=== PATIENT | female | born 1970 | race African-American/Black ===

== ENCOUNTER 2018-04-22 12:39 | Emergency (ER) | payer SELFPAY ==
[2018-04-22] MEDS ORDERED: KETOROLAC 30 MG/ML INJ ONE (13:39)
--- NOTE | 2018-04-22 13:42 | RAD REPORT ---
EXAM DESCRIPTION: RAD - Chest Single View - 04/22/2018 1:32 pm CLINICAL HISTORY: CHEST PAIN Chest pain. COMPARISON: Chest Single View dated 03/13/2017 FINDINGS: Portable technique limits examination quality. The lungs are underinflated with motion degradation noted. No gross infiltrate seen. The heart is nor mal in size. No displaced fractures. IMPRESSION: Underinflated lungs.
[2018-04-22 13:54] LABS: Absolute Lymphocytes (CBC) 2.7 K/uL (0.7-4.9); Absolute Monocytes 0.6 K/uL (0.1-1.3); Absolute Neutrophil 3.1 K/uL (1.8-8.0); Basophils % 0.7 % (0-1.3); Eosinophils % 1.8 % (0-4.4); Hematocrit 42.4 % (36.0-45.0); Lymphocytes % 41.3 % (15.3-44.8); MCH 24.7 pg (27.0-35.0); MPV 9.4 fL (7.6-11.3); Monocytes % 8.5 % (3.3-12.3); RBC Red Blood Cell Count 5.51 M/uL (3.86-4.86)
[2018-04-22 14:03] LABS: Protime INR 1.08
[2018-04-22 14:06] LABS: ALT/SGPT 36 U/L (12-78); AST/SGOT 22 U/L (15-37); Albumin 3.4 g/dL (3.4-5.0); Alkaline Phosphatase 96 U/L (45-117); BUN Blood Urea Nitrogen 15 mg/dL (7-18); Bicarbonate 27 mmol/L (21-32); Bilirubin Direct < 0.1 mg/dL (0-0.2); Bilirubin Total 0.2 mg/dL (0.2-1.0); CKMB Creatine Kinase MB 3.6 ng/mL (0.3-3.6); Creatine Phosphokinase 390 U/L (26-192); Glucose Level 269 mg/dL (74-106); Magnesium 2.2 mg/dL (1.8-2.4); Potassium 3.4 mmol/L (3.5-5.1); Protein, Total 7.1 g/dL (6.4-8.2); Sodium Level 138 mmol/L (136-145)
[2018-04-22 14:07] LABS: NT PRO-BNP < 5 pg/mL (<125)
--- NOTE | 2018-04-22 14:48 | RAD REPORT ---
EXAM DESCRIPTION: CT - C Spine Wo Con - 04/22/2018 2:37 pm CLINICAL HISTORY: Pain;Numbness/tingling Radiculopathy COMPARISON: <Comparisons> FINDINGS: The cervical vertebral body heights and disc spaces are maintained. Mild anterior osteophy tosis is present along the inferior aspect of the cervical spine. No evidence of acute cervical spine fracture or subluxation. Prevertebral soft tissues are normal in thickness. IMPRESSION: Negative study. All CT scans are performed using dose optimization technique as appropriate and may include automated exposure control or mA/KV adjustment according to patient size.
[2018-04-22 14:53] LABS: Urine Blood TRACE (NEG); Urine Glucose 1+ (NEG); Urine Protein NEGATIVE (NEG); Urine pH 6.5 (5.0-7.0)
[2018-04-22] MEDS ORDERED: POTASSIUM 25 MEQ EFFERV TAB ONE (15:03)
[2018-04-22] MEDS ORDERED: NA CHLORIDE 0.9% 1,000 ML ONE (15:03)
--- NOTE | 2018-04-22 16:16 | EDPHYS ---
Physician Documentation [facility] Name: Shonna Franco Age: 47 yrs Sex: Female : 1970 Arrival Date: 04/22/2018 Time: 12:40 Bed 28 Private MD: None, None ED Physician Garcia Zimmer HPI: 04/22 14:21 This 47 yrs old Black Female presents to ER via Wheelchair with complaints of Chest snw Pain. 14:21 The patient or guardian reports chest pain that is located primarily in the anterior snw chest wall, left. Onset: suddenly, and became worse and became persistent. The pain radiates to the left arm. Associated signs and symptoms: Pertinent positives: None. The chest pain is described as sharp, stabbing. Duration: The patient or guardian reports multiple episodes, that wax and wane. Modifying factors: The symptoms are alleviated by nothing. the symptoms are aggravated by movement. Severity of pain: At its worst the pain was tingling to left fingers. The patient has not experienced similar symptoms in the past. HERB GROWER: 12:56 LMP N/A - Post-menopause ch Historical: - Allergies: 12:56 No Known Allergies; ch - Home Meds: 12:56 none now "dr said i was good" [Active]; ch - PMHx: 12:56 Diabetes - NIDDM; Hypertension; Kidney stones; ch - PSHx: 12:56 gall stone sx; ch - Immunization history:: Adult Immunizations up to date, Flu vaccine is not up to date. - Social history:: Smoking status: Patient/guardian denies using tobacco, Patient/guardian denies using alcohol, street drugs. - Ebola Screening: : Patient negative for fever greater than or equal to 101.5 degrees Fahrenheit, and additional compatible Ebola Virus Disease symptoms Patient denies exposure to infectious person Patient denies travel to an Ebola-affected area in the 21 days before illness onset No symptoms or risks identified at this time. ROS: 15:14 Constitutional: Negative for fever, chills, and weight loss, Eyes: Negative for injury, snw pain, redness, and discharge, ENT: Negative for injury, pain, and discharge, Neck: Negative for injury, pain, and swelling, Respiratory: Negative for shortness of breath, cough, wheezing, and pleuritic chest pain, Abdomen/GI: Negative for abdominal pain, nausea, vomiting, diarrhea, and constipation, Back: Negative for injury and pain, : Negative for injury, bleeding, discharge, and swelling, Skin: Negative for injury, rash, and discoloration, Neuro: Negative for headache, weakness, numbness, tingling, and seizure. 15:14 Cardiovascular: Positive for chest pain, with movement, Negative for edema, orthopnea, palpitations. 15:14 MS/extremity: Positive for tingling, of the left arm/fingers. Exam: 15:15 Constitutional: This is a well developed, well nourished patient who is awake, alert, snw and in no acute distress. Head/Face: Normocephalic, atraumatic. Eyes: Pupils equal round and reactive to light, extra-ocular motions intact. Lids and lashes normal. Conjunctiva and sclera are non-icteric and not injected. Cornea within normal limits. Periorbital areas with no swelling, redness, or edema. ENT: Nares patent. No nasal discharge, no septal abnormalities noted. Tympanic membranes are normal and external auditory canals are clear. Oropharynx with no redness, swelling, or masses, exudates, or evidence of obstruction, uvula midline. Mucous membranes moist. Neck: Trachea midline, no thyromegaly or masses palpated, and no cervical lymphadenopathy. Supple, full range of motion without nuchal rigidity, or vertebral point tenderness. No Meningismus. Chest/axilla: Normal chest wall appearance and motion. Nontender with no deformity. No lesions are appreciated. Cardiovascular: Regular rate and rhythm with a normal S1 and S2. No gallops, murmurs, or rubs. Normal PMI, no JVD. No pulse deficits. Respiratory: Lungs have equal breath sounds bilaterally, clear to auscultation and percussion. No rales, rhonchi or wheezes noted. No increased work of breathing, no retractions or nasal flaring. Abdomen/GI: Soft, non-tender, with normal bowel sounds. No distension or tympany. No guarding or rebound. No evidence of tenderness throughout. Back: No spinal tenderness. No costovertebral tenderness. Full range of motion. Skin: Warm, dry with normal turgor. Normal color with no rashes, no lesions, and no evidence of cellulitis. MS/ Extremity: Pulses equal, no cyanosis. Neurovascular intact. Full, normal range of motion. Neuro: Awake and alert, GCS 15, oriented to person, place, time, and situation. Cranial nerves II-XII grossly intact. Motor strength 5/5 in all extremities. Sensory grossly intact. Cerebellar exam normal. Normal gait. Psych: Awake, alert, with orientation to person, place and time. Behavior, mood, and affect are within normal limits. Vital Signs: 12:56 BP 161 / 79; Pulse 84; Resp 16; Temp 97.9; Pulse Ox 98% on R/A; Weight 97.52 kg; Height ch 5 ft. 4 in. (162.56 cm); Pain 9/10; 14:00 BP 138 / 83; Pulse 65; Resp 17; Pulse Ox 96% on R/A; kr2 15:12 BP 141 / 83; Pulse 60; Resp 17; Pulse Ox 97% on R/A; kr2 16:15 BP 137 / 80; Pulse 64; Resp 19; Pulse Ox 99% on R/A; kr2 12:56 Body Mass Index 36.90 (97.52 kg, 162.56 cm) MDM: 13:08 Patient medically screened. snw 16:21 ECG:. Data reviewed: vital signs, nurses notes, lab test result(s), EKG, radiologic snw studies. Data interpreted: Pulse oximetry: on room air is 97 %. Interpretation: normal. Counseling: I had a detailed discussion with the patient and/or guardian regarding: the historical points, exam findings, and any diagnostic results supporting the discharge/admit diagnosis, the presence of at least one elevated blood pressure reading (>120/80) during this emergency department visit, lab results, radiology results, the need for outpatient follow up, to return to the emergency department if symptoms worsen or persist or if there are any questions or concerns that arise at home. Special discussion: Based on the patient's history, exam, and Dx evaluation, there is no indication for emergent intervention or inpatient Tx. It is understood by the patient/guardian that if the Sx's persist or worsen they need to return immediately for re-evaluation. Based on the history and exam findings, there is no indication for further emergent testing or inpatient evaluation. I discussed with the patient/guardian the need to see the braider operator for further evaluation of the symptoms. I discussed with the patient/guardian the need to see the primary care provider for further evaluation of the symptoms. 04/22 13:07 Order name: Basic Metabolic Panel; Complete Time: 14:07 snw 04/22 13:07 Order name: CBC with Diff; Complete Time: 14:11 snw 04/22 13:07 Order name: Ckmb; Complete Time: 14:07 snw 04/22 13:07 Order name: CPK; Complete Time: 14:07 snw 04/22 13:07 Order name: LFT's; Complete Time: 14: snw 04/22 13:07 Order name: Magnesium; Complete Time: 14: snw 04/22 13:07 Order name: NT PRO-BNP; Complete Time: 14: snw 04/22 13:07 Order name: PT-INR; Complete Time: 14: snw 04/22 13:07 Order name: Ptt, Activated; Complete Time: 14:07 snw 04/22 13:07 Order name: Troponin (emerg Dept Use Only); Complete Time: 14:07 w 04/22 13:07 Order name: XRAY Chest (1 view); Complete Time: 13:44 snw 04/22 14:27 Order name: CT C Spine; Complete Time: 14:52 snw 04/22 14:42 Order name: Urine Dipstick--Ancillary (enter results); Complete Time: 14:55 04/22 13:07 Order name: EKG; Complete Time: 13:08 w 04/22 13:07 Order name: Cardiac monitoring; Complete Time: 13:30 snw 04/22 13:07 Order name: EKG - Nurse/Tech; Complete Time: 13:30 w 04/22 13:07 Order name: IV Saline Lock; Complete Time: 13:31 w 04/22 13:07 Order name: Labs collected and sent; Complete Time: 13:31 w 04/22 13:07 Order name: O2 Per Protocol; Complete Time: 13:31 w 04/22 13:07 Order name: O2 Sat Monitoring; Complete Time: 13:31 w 04/22 13:07 Order name: Urine Dipstick-Ancillary (obtain specimen); Complete Time: 14:35 snw EC:21 Rate is 72 beats/min. Rhythm is regular. QRS [place] is Normal. No ST changes noted. snw Clinical impression: NSR w/ Non-specific ST/T Changes. Reviewed by me. Administered Medications: 13:38 Drug: TORadol 30 mg Route: IVP; Site: right antecubital; kr2 14:00 Follow up: Response: No adverse reaction; Pain is decreased kr2 14:36 Follow up: Response: No adverse reaction; Pain is decreased kr2 15:05 Drug: NS 0.9% 1000 ml Route: IV; Rate: 1 bolus; Site: left forearm; kr2 16:30 Follow up: Response: No adverse reaction; IV Status: Completed infusion kr2 15:05 Drug: Potassium Effervescent Tablet 50 mEq Route: PO; kr2 16:20 Follow up: Response: No adverse reaction kr2 Disposition: 04/23 06:31 Co-signature as Attending Physician, Garcia Zimmer MD I agree with the assessment and mary plan of care. Disposition: 04/22/18 16:16 Discharged to Home. Impression: Dehydration, Hypokalemia, Radiculopathy, cervical region, Chest pain, unspecified. - Condition is Stable. - Discharge Instructions: Cervical Radiculopathy, Nonspecific Chest Pain, Dehydration, Adult, Potassium Content of Foods, Hypertension, Aspirin and Your Heart, Rehydration, Adult. - Prescriptions for Diclofenac Sodium 75 mg Oral Tablet Sustained Release - take 1 tablet by ORAL route 2 times per day; 30 tablet. orphenadrine citrate 100 mg Oral Tablet Sustained Release - take 1 tablet by ORAL route 2 times per day As needed; 20 tablet. - Work release form, Medication Reconciliation Form, Thank You Letter, Antibiotic Education, Prescription Opioid Use form. - Follow up: Private Physician; When: 2 - 3 days; Reason: Recheck today's complaints, Continuance of care, Re-evaluation by your physician. Follow up: Emergency Department; When: As needed; Reason: Worsening of condition. Signatures: Dispatcher [employer] EDFaiza Aaron, Garcia Gandhi RN, ch, MD MD cha Therrien, Shelly, DIRECTOR OF PHYSIOTHERAPY SERVICES-C DIRECTOR OF PHYSIOTHERAPY SERVICES-Csnw Sheila Shah RN RN kr2 Corrections: (The following items were deleted from the chart) 04/22 16:31 16:16 04/22/2018 16:16 Discharged to Home. Impression: Dehydration; Hypokalemia; kr2 Radiculopathy, cervical region; Chest pain, unspecified. Condition is Stable. Forms are Medication Reconciliation Form, Thank You Letter, Antibiotic Education, Prescription Opioid Use. Follow up: Private Physician; When: 2 - 3 days; Reason: Recheck today's complaints, Continuance of care, Re-evaluation by your physician. Follow up: Emergency Department; When: As needed; Reason: Worsening of condition. snw
--- NOTE | 2018-04-22 16:16 | ER ---
Nurse's Notes [facility] Name: Sohnna Franco Age: 47 yrs Sex: Female : 1970 Arrival Date: 04/22/2018 Time: 12:40 Bed 28 Private MD: None, None Diagnosis: Dehydration;Hypokalemia;Radiculopathy, cervical region;Chest pain, unspecified Presentation: 04/22 12:55 Presenting complaint: Patient states: chest pain L upper chest started at 0830. I took ch some gas x but its only getting worse, now my L arm is tingling. Transition of care: patient was not received from another setting of care. Onset of symptoms was April 22, 2018 at 08:30. Risk Assessment: Do you want to hurt yourself or someone else? Patient reports no desire to harm self or others. Initial Sepsis Screen: Does the patient meet any 2 criteria? No. Patient's initial sepsis screen is negative. Does the patient have a suspected source of infection? No. Patient's initial sepsis screen is negative. 12:55 Method Of Arrival: Wheelchair 12:55 Acuity: MALCOM 3 13:00 Care prior to arrival: Medication(s) given: Motrin, 400 mg. kr2 Triage Assessment: 12:56 General: Appears in no apparent distress. comfortable, Behavior is calm, cooperative, ch appropriate for age. Pain: Complains of pain in left clavicle, anterior aspect of left upper chest and left arm Pain currently is 9 out of 10 on a pain scale. Cardiovascular: Reports chest pain. [employer]ACING: 12:56 LMP N/A - Post-menopause Historical: - Allergies: 12:56 No Known Allergies; - Home Meds: 12:56 none now " said i was good" [Active]; ch - PMHx: 12:56 Diabetes - NIDDM; Hypertension; Kidney stones; - PSHx: 12:56 gall stone sx; - Immunization history:: Adult Immunizations up to date, Flu vaccine is not up to date. - Social history:: Smoking status: Patient/guardian denies using tobacco, Patient/guardian denies using alcohol, street drugs. - Ebola Screening: : Patient negative for fever greater than or equal to 101.5 degrees Fahrenheit, and additional compatible Ebola Virus Disease symptoms Patient denies exposure to infectious person Patient denies travel to an Ebola-affected area in the 21 days before illness onset No symptoms or risks identified at this time. Screenin:48 Abuse screen: Denies threats or abuse. Denies injuries from another. Nutritional kr2 screening: No deficits noted. Tuberculosis screening: No symptoms or risk factors identified. Fall Risk None identified. Assessment: 13:05 General: Appears uncomfortable, well groomed, well developed, well nourished, Behavior kr2 is cooperative, anxious. Pain: Complains of pain in mid-sternal area Pain radiates to anterior aspect of left upper chest and left arm Pain currently is 9 out of 10 on a pain scale. Quality of pain is described as sharp, shooting, stabbing, Pain began 4 hours ago. Is intermittent, Alleviated by nothing. Aggravated by increased activity. Neuro: Level of Consciousness is awake, alert, obeys commands, Oriented to person, place, time, situation, Appropriate for age Economics Teacher are equal bilaterally Moves all extremities. Facial symmetry appears normal, Intact. Cardiovascular: Capillary refill < 3 seconds in bilateral fingers Patient's skin is warm and dry. Cardiovascular: Heart tones S1 S2 Rhythm is sinus rhythm. Respiratory: Airway is patent Respiratory effort is even, unlabored, Respiratory pattern is regular, symmetrical. GI: Abdomen is round non-distended, Bowel sounds present X 4 quads. Abd is soft and non tender X 4 quads. : Urine is clear. EENT: Oral mucosa is moist. Derm: Skin is intact, is healthy with good turgor, Skin is pink, warm \\T\\ dry. Musculoskeletal: Circulation, motion, and sensation intact. 14:00 Reassessment: Patient appears in no apparent distress at this time. Patient and/or kr2 family updated on plan of care and expected duration. Pain level reassessed. Patient is alert, oriented x 3, equal unlabored respirations, skin warm/dry/pink. Patient states symptoms have improved. 15:00 Reassessment: Patient appears in no apparent distress at this time. Patient and/or kr2 family updated on plan of care and expected duration. Pain level reassessed. Patient is alert, oriented x 3, equal unlabored respirations, skin warm/dry/pink. Patient states symptoms have improved. 16:00 Reassessment: Patient appears in no apparent distress at this time. Patient and/or kr2 family updated on plan of care and expected duration. Pain level reassessed. Patient is alert, oriented x 3, equal unlabored respirations, skin warm/dry/pink. Patient denies pain at this time. Patient states feeling better. Vital Signs: 12:56 BP 161 / 79; Pulse 84; Resp 16; Temp 97.9; Pulse Ox 98% on R/A; Weight 97.52 kg; Height 5 ft. 4 in. (162.56 cm); Pain 9/10; 14:00 BP 138 / 83; Pulse 65; Resp 17; Pulse Ox 96% on R/A; kr2 15:12 BP 141 / 83; Pulse 60; Resp 17; Pulse Ox 97% on R/A; kr2 16:15 BP 137 / 80; Pulse 64; Resp 19; Pulse Ox 99% on R/A; kr2 12:56 Body Mass Index 36.90 (97.52 kg, 162.56 cm) ED Course: 12:40 Patient arrived in ED. mr 12:40 None, None is Private Physician. mr 12:55 Triage completed. ch 12:56 Arm band placed on left wrist. Patient placed in an exam room, on a stretcher. ch 13:00 Patient has correct armband on for positive identification. Bed in low position. Call kr2 light in reach. Side rails up X 1. quality assurance monitor body on. Pulse ox on. NIBP on. Door closed. Warm blanket given. Head of bed elevated. 13:07 Jory Ceballos FNP-C [facility]. snw 13:07 Garcia Zimmer MD is Attending Physician. snw 13:15 Inserted saline lock: 20 gauge in left forearm, using aseptic technique. Blood kr2 collected. Patient maintains SpO2 saturation greater than 95% on room air. 13:24 EKG done, by development technician. reviewed by Jory BAUTISTA. at1 13:29 Sheila Shah RN is Primary Nurse. kr2 13:32 X-ray completed. Portable x-ray completed in exam room. Patient tolerated procedure sw well. 13:32 XRAY Chest (1 view) In Process Unspecified. EDMS 14:35 CT completed. Patient moved to CT via wheelchair. Patient moved back from CT. cw1 14:37 CT C Spine In Process Unspecified. EDMS 16:20 No provider procedures requiring assistance completed. IV discontinued, intact, kr2 bleeding controlled, No redness/swelling at site. Pressure dressing applied. Administered Medications: 13:38 Drug: TORadol 30 mg Route: IVP; Site: right antecubital; kr2 14:00 Follow up: Response: No adverse reaction; Pain is decreased kr2 14:36 Follow up: Response: No adverse reaction; Pain is decreased kr2 15:05 Drug: NS 0.9% 1000 ml Route: IV; Rate: 1 bolus; Site: left forearm; kr2 16:30 Follow up: Response: No adverse reaction; IV Status: Completed infusion kr2 15:05 Drug: Potassium Effervescent Tablet 50 mEq Route: PO; kr2 16:20 Follow up: Response: No adverse reaction kr2 Outcome: 16:16 Discharge ordered by . [place] 16:31 Patient left the ED. kr2 04/23 01:22 Discharged to home ambulatory, with family. kr2 Condition: good Discharge instructions given to patient, Instructed on discharge instructions, follow up and referral plans. medication usage, Demonstrated understanding of instructions, follow-up care, medications, Prescriptions given X 2. Signatures: Dispatcher [employer] EDMS Faiza Jeong, RN RN Jory Shepard, RN IMAGING-C RN IMAGING-Csnw Michelle Gilbert mr Argueta, Junie cw1 Marion Seymour, vascular radiologist EKG Tat1 Carolee Gray Karey, RN RN kr2
--- NOTE | 2018-04-23 16:21 | EKG ---
Test Date: 2018-04-22 Test Time: 13:09:51 Supervisor Dumping: NGUYỄN MEASUREMENT RESULTS: Intervals: Rate: 72 IL: 148 QRSD: 94 QT: 422 QTc: 462 Archie: P: 24 IL: 148 QRS: 15 T: 20 INTERPRETIVE STATEMENTS: Sinus rhythm with sinus arrhythmia with occasional premature ventricular complexes Nonspecific T wave abnormality Prolonged QT Abnormal ECG Compared to ECG 03/13/2017 21:31:17 Ventricular premature complex(es) now present Prolonged QT interval now present T-wave abnormality still present Electronically Signed On 04-23-18 16:15:04 CDT by Bhargav Davenport
== END 2018-04-22 16:31 | disposition home or self-care (01) ==
LOC: ER 12:39
DX: E86.0 Dehydration (principal); E87.6 Hypokalemia; M54.12 Radiculopathy, cervical region; I10 Essential (primary) hypertension
CPT/HCPCS: 36415; 71045; 72125; 80048; 80076; 81003; 82550; 82553; 83735; 83880; 84484; 85025; 85610; 85730; 93005; 96361; 96374; 99285; J7030

== ENCOUNTER 2018-12-19 22:21 | Emergency (ER) | payer OTHER, SELFPAY ==
[2018-12-20 00:24] LABS: Absolute Lymphocytes (CBC) 3.6 K/uL (0.7-4.9); Absolute Monocytes 0.6 K/uL (0.1-1.3); Basophils % 0.8 % (0-1.3); Eosinophils % 2.1 % (0-4.4); Hematocrit 45.2 % (36.0-45.0); Lymphocytes % 42.5 % (15.3-44.8); Monocytes % 7.2 % (3.3-12.3); RBC Red Blood Cell Count 5.96 M/uL (3.86-4.86)
[2018-12-20 00:33] LABS: Protime INR 1.05
[2018-12-20 00:46] LABS: ALT/SGPT 40 U/L (12-78); AST/SGOT 17 U/L (15-37); Albumin 4.1 g/dL (3.4-5.0); Alkaline Phosphatase 107 U/L (45-117); BUN Blood Urea Nitrogen 15 mg/dL (7-18); Bicarbonate 28 mmol/L (21-32); Bilirubin Direct 0.1 mg/dL (0-0.2); Bilirubin Total 0.4 mg/dL (0.2-1.0); Glucose Level 186 mg/dL (74-106); Potassium 3.3 mmol/L (3.5-5.1); Protein, Total 8.2 g/dL (6.4-8.2); Sodium Level 139 mmol/L (136-145); Troponin (Emerg Dept Use Only) < 0.02 ng/mL (0.0-0.045)
[2018-12-20] MEDS ORDERED: POTASSIUM 25 MEQ EFFERV TAB ONE (01:11)
--- NOTE | 2018-12-20 01:16 | EDPHYS ---
Physician Documentation [facility] Name: Shonna Franco Age: 48 yrs Sex: Female : 1970 Arrival Date: 12/19/2018 Time: 22:21 Bed 18 Private MD: ARNIE Physician Garcia Zimmer HPI: 12/19 23:00 This 48 yrs old Black Female presents to ER via Ambulatory with complaints of High cp Blood Sugar. 23:00 The patient or guardian reports hyperglycemia, that was potentially precipitated by cp intolerance of metformin. 23:00 Onset: The symptoms/episode began/occurred gradually, and became worse today. cp Associated signs and symptoms: Pertinent negatives: decreased urine output, diaphoresis, diarrhea, vomiting. Current symptoms: In the emergency department the patient's symptoms are unchanged from the initial presentation, despite home interventions. Patient reports she takes metformin 500 mg daily but is unable to tolerate taking metformin at higher doses due to diarrhea. Patient states she was prescribed Toujeo but was unable to afford medication due to cost. 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 - Social history:: Smoking status: Patient/guardian denies using tobacco. - Ebola Screening: : Patient negative for fever greater than or equal to 101.5 degrees Fahrenheit, and additional compatible Ebola Virus Disease symptoms. ROS: 23:05 Constitutional: Negative for body aches, chills, fever, poor PO intake. cp 23:05 Eyes: Negative for injury, pain, redness, and discharge. cp 23:05 ENT: Negative for ear pain, sore throat, difficulty swallowing, difficulty handling secretions. 23:05 Cardiovascular: Negative for chest pain, edema, palpitations. 23:05 Respiratory: Negative for cough, wheezing. 23:05 Abdomen/GI: Negative for abdominal pain, vomiting, diarrhea, constipation, black/tarry stool, rectal bleeding. 23:05 Back: Negative for pain at rest, pain with movement. 23:05 : Negative for urinary symptoms. 23:05 Skin: Negative for rash. 23:05 Neuro: Negative for altered mental status, dizziness, headache, weakness. 23:05 All other systems are negative. Exam: 23:15 Constitutional: The patient appears in no acute distress, alert, awake, cp non-diaphoretic, non-toxic, well developed, well nourished. 23:15 Head/Face: Normocephalic, atraumatic. Eyes: Pupils equal round and reactive to light, cp extra-ocular motions intact. Lids and lashes normal. Conjunctiva and sclera are non-icteric and not injected. Cornea within normal limits. Periorbital areas with no swelling, redness, or edema. ENT: Nares patent. No nasal discharge, no septal abnormalities noted. Tympanic membranes are normal and external auditory canals are clear. Oropharynx with no redness, swelling, or masses, exudates, or evidence of obstruction, uvula midline. Mucous membranes moist. Chest/axilla: Normal chest wall appearance and motion. Nontender with no deformity. No lesions are appreciated. 23:15 Cardiovascular: Rate: normal, Rhythm: regular, Heart sounds: murmur, not appreciated, Edema: is not appreciated, JVD: is not appreciated. 23:15 Respiratory: the patient does not display signs of respiratory distress, Respirations: normal, no use of accessory muscles, no retractions, no splinting, no tachypnea, labored breathing, is not present, Breath sounds: are clear throughout, no decreased breath sounds, no stridor, no wheezing. 23:15 Abdomen/GI: Inspection: abdomen appears normal, Bowel sounds: active, all quadrants, Palpation: abdomen is soft and non-tender, in all quadrants, involuntary guarding, is not appreciated. 23:15 Back: pain, is absent, ROM is normal. 23:15 Skin: cellulitis, is not appreciated, no rash present. 23:15 Neuro: Orientation: to person, place \\T\\ time. Mentation: is normal, Cerebellar function: is grossly normal, Motor: moves all fours, strength is normal, Sensation: is normal. 23:58 ECG was reviewed by the Attending Physician. cp Vital Signs: 22:46 BP 154 / 87; Pulse 61; Resp 17 S; Temp 98.3(O); Pulse Ox 97% on R/A; Weight 95.25 kg jd3 (R); Height 5 ft. 4 in. (162.56 cm) (R); Pain 12/03; 12/20 00:00 BP 161 / 85; Pulse 64; Resp 19; Pulse Ox 99% ; rr5 01:00 BP 148 / 95; Pulse 60; Resp 17; Pulse Ox 98% ; rr5 01:22 BP 141 / 75; Pulse 63; Resp 16; Pulse Ox 98% ; rr5 12/19 22:46 Body Mass Index 36.05 (95.25 kg, 162.56 cm) jd3 MDM: 12/19 22:50 Patient medically screened. cp 12/20 00:00 Differential diagnosis: diabetes insipidus, DKA, hyperglycemia, hyperthyroidism. cp 01:15 Data reviewed: vital signs, nurses notes, lab test result(s), EKG, and as a result, I cp will discharge patient. 01:15 Test interpretation: by ED physician or midlevel provider: ECG. Counseling: I had a cp detailed discussion with the patient and/or guardian regarding: the historical points, exam findings, and any diagnostic results supporting the discharge/admit diagnosis, the presence of at least one elevated blood pressure reading (>120/80) during this emergency department visit, lab results, the need for outpatient follow up, for definitive care, a family practitioner, to return to the emergency department if symptoms worsen or persist or if there are any questions or concerns that arise at home. ED course: VSS. Blood glucose improved with IV fluids. Patient instructed on need for closer monitoring of blood glucose, diet and f/u with pcp to discuss treatment options. 12/19 23:42 Order name: Basic Metabolic Panel; Complete Time: 00:47 cp 12/19 23:42 Order name: CBC with Diff; Complete Time: 00:47 cp 12/19 23:42 Order name: LFT's; Complete Time: 00:47 cp 12/19 23:42 Order name: Magnesium; Complete Time: 00:47 cp 12/19 23:42 Order name: PT-INR; Complete Time: 00:47 cp 12/19 23:42 Order name: Troponin (emerg Dept Use Only); Complete Time: 00:47 cp 12/19 22:58 Order name: Accucheck Blood Glucose; Complete Time: 23:11 cp 12/19 23:42 Order name: EKG; Complete Time: 23:42 cp 12/19 23:42 Order name: Cardiac monitoring; Complete Time: 00:08 cp 12/19 23:42 Order name: EKG - Nurse/Tech; Complete Time: 00:08 cp 12/19 23:42 Order name: IV Saline Lock; Complete Time: 00:08 cp 12/19 23:42 Order name: Labs collected and sent; Complete Time: 00:08 cp 12/19 23:42 Order name: O2 Per Protocol; Complete Time: 00:08 cp 12/19 23:42 Order name: O2 Sat Monitoring; Complete Time: 00:08 cp 12/19 23:42 Order name: Urine Dipstick-Ancillary (obtain specimen); Complete Time: 00:08 cp 12/19 23:42 Order name: Urine Test (obtain specimen); Complete Time: 00:08 cp EC/26 23:58 Rate is 62 beats/min. Rhythm is regular. OK interval is normal. QRS interval is normal. cp QT interval is normal. T waves are Inverted in leads V2, V3, V4, V5. Clinical impression: Abnormal EKG without significant change. Interpreted by me. Reviewed by me. Administered Medications: 12/20 01:05 Drug: Potassium Effervescent Tablet 50 mEq Route: PO; rr5 01:24 Follow up: Response: Medication administered at discharge. rr5 Point of Care Testing: Blood Glucose: 12/19 22:50 Blood Glucose: 203 mg/dL; rr5 Ranges: Critical Glucose Levels:Adult <50 mg/dl or >400 mg/dl <40 mg/dl or >180 mg/dl Disposition: 12/20/18 01:15 Discharged to Home. Impression: Diabetes mellitus due to underlying condition with hyperglycemia. - Condition is Stable. - Discharge Instructions: Type 2 Diabetes Mellitus, Diagnosis, Adult, Blood Glucose Monitoring, Adult, Diabetes Mellitus and Food. - Medication Reconciliation Form, Thank You Letter, Antibiotic Education, Prescription Opioid Use form. - Follow up: Private Physician; When: 2 - 3 days; Reason: Recheck today's complaints. - Problem is new. - Symptoms have improved. Addendum: 12/23/2018 11:10 Co-signature as Attending Physician, Garcia Zimmer MD I agree with the assessment and c rider plan of care. Signatures: Dispatcher [employer] EDGarcia Dos Santos MD MD cha Page, Corey, PA PA Jose Angel Lee RN RN jd3 Madan Vernon RN RN rr5 Corrections: (The following items were deleted from the chart) 12/20 01:24 01:15 12/20/2018 01:15 Discharged to Home. Impression: Diabetes mellitus due to rr5 underlying condition with hyperglycemia. Condition is Stable. Forms are Medication Reconciliation Form, Thank You Letter, Antibiotic Education, Prescription Opioid Use. Follow up: Private Physician; When: 2 - 3 days; Reason: Recheck today's complaints. Problem is new. Symptoms have improved. cp
--- NOTE | 2018-12-20 01:16 | ER ---
Nurse's Notes [facility] Name: Shonna Franco Age: 48 yrs Sex: Female : 1970 Arrival Date: 12/19/2018 Time: 22:21 Bed 18 Private MD: Diagnosis: Diabetes mellitus due to underlying condition with hyperglycemia Presentation: 12/19 22:42 Presenting complaint: Patient states: "I am diabetic and I am feeling really bad. I jd3 checked my sugar and it was over 300 at home.". Transition of care: patient was not received from another setting of care. Onset of symptoms was December 19, 2018. Risk Assessment: Do you want to hurt yourself or someone else? Patient reports no desire to harm self or others. Initial Sepsis Screen: Does the patient meet any 2 criteria? No. Patient's initial sepsis screen is negative. Does the patient have a suspected source of infection? No. Patient's initial sepsis screen is negative. Care prior to arrival: None. 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 - Social history:: Smoking status: Patient/guardian denies using tobacco. - Ebola Screening: : Patient negative for fever greater than or equal to 101.5 degrees Fahrenheit, and additional compatible Ebola Virus Disease symptoms. Screenin:27 Abuse screen: Denies threats or abuse. Denies injuries from another. Nutritional rr5 screening: No deficits noted. Tuberculosis screening: No symptoms or risk factors identified. Fall Risk None identified. Total Lewis Fall Scale indicates No Risk (0-24 pts). Assessment: 23:20 General: Appears in no apparent distress. comfortable, Behavior is calm, cooperative, rr5 appropriate for age. Pain: Complains of pain in right shoulder Pain does not radiate. Pain currently is 5 out of 10 on a pain scale. Quality of pain is described as aching, Pain began gradually, Is intermittent, chronic. 23:20 Neuro: Level of Consciousness is awake, alert, obeys commands, Oriented to person, rr5 place, time, situation, Appropriate for age. Cardiovascular: Capillary refill < 3 seconds Patient's skin is warm and dry. Respiratory: Airway is patent Respiratory effort is even, unlabored, Respiratory pattern is regular, symmetrical. GI: No signs and/or symptoms were reported involving the gastrointestinal system. Reports i have high blood sugar. : No signs and/or symptoms were reported regarding the genitourinary system. EENT: No signs and/or symptoms were reported regarding the EENT system. Derm: Skin is intact, Skin temperature is warm. Musculoskeletal: Capillary refill < 3 seconds, Range of motion: intact in all extremities, Reports pain in right shoulder. 12/20 00:15 Reassessment: Patient appears in no apparent distress at this time. No changes from rr5 previously documented assessment. Patient is alert, oriented x 3, equal unlabored respirations, skin warm/dry/pink. no complaints made awaiting for results. 01:21 Reassessment: Patient appears in no apparent distress at this time. Patient is alert, rr5 oriented x 3, equal unlabored respirations, skin warm/dry/pink. discharge instruction given and explained without complaints made. Vital Signs: 12/19 22:46 BP 154 / 87; Pulse 61; Resp 17 S; Temp 98.3(O); Pulse Ox 97% on R/A; Weight 95.25 kg jd3 (R); Height 5 ft. 4 in. (162.56 cm) (R); Pain 4/10; 12/20 00:00 BP 161 / 85; Pulse 64; Resp 19; Pulse Ox 99% ; rr5 01:00 BP 148 / 95; Pulse 60; Resp 17; Pulse Ox 98% ; rr5 01:22 BP 141 / 75; Pulse 63; Resp 16; Pulse Ox 98% ; rr5 12/19 22:46 Body Mass Index 36.05 (95.25 kg, 162.56 cm) jd3 ED Course: 12/19 22:21 Patient arrived in ED. am2 22:43 Triage completed. jd3 22:47 Arm band placed on. jd3 22:50 Garcia Mackey PA is PHCP. cp 22:50 Garcia Zimmer MD is Attending Physician. cp 23:03 Madan Vernon, RN is Primary Nurse. rr5 23:30 Patient has correct armband on for positive identification. Bed in low position. Call rr5 light in reach. Pulse ox on. NIBP on. 12/20 00:00 Inserted saline lock: 20 gauge in right forearm, using aseptic technique. Blood rr5 collected. 00:09 environmental monitoring technician on. rr5 01:23 No provider procedures requiring assistance completed. IV discontinued, intact, rr5 bleeding controlled, No redness/swelling at site. Pressure dressing applied. Administered Medications: 01:05 Drug: Potassium Effervescent Tablet 50 mEq Route: PO; rr5 01:24 Follow up: Response: Medication administered at discharge. rr5 Point of Care Testing: Blood Glucose: 12/19 22:50 Blood Glucose: 203 mg/dL; rr5 Ranges: Outcome: 12/20 01:15 Discharge ordered by MD. cp 01:23 Discharged to home ambulatory. rr5 01:23 Condition: stable 01:23 Discharge instructions given to patient, Instructed on discharge instructions, follow up and referral plans. Demonstrated understanding of instructions, follow-up care. 01:24 Patient left the ED. rr5 Signatures: Garcia Mackey PA PA cp Moreno, Amanda am2 Davies, Jonathon, RN RN Madan Black, RN RN rr5
--- NOTE | 2018-12-21 07:50 | EKG ---
Test Date: 2018-12-19 Test Time: 23:55:45 Equipment Cleaner: RR MEASUREMENT RESULTS: Intervals: Rate: 62 TN: 156 QRSD: 92 QT: 384 QTc: 389 Tucker: P: 15 TN: 156 QRS: 48 T: 32 INTERPRETIVE STATEMENTS: Sinus rhythm with occasional premature ventricular complexes Nonspecific T wave abnormality Abnormal ECG Compared to ECG 04/22/2018 13:09:51 Sinus arrhythmia no longer present Prolonged QT interval no longer present T-wave abnormality still present Electronically Signed On 12-21-18 07:47:40 CDT by Bhargav Davenport
== END 2018-12-20 01:24 | disposition home or self-care (01) ==
LOC: ER 22:21
DX: E11.65 Type 2 diabetes mellitus with hyperglycemia (principal); I10 Essential (primary) hypertension; Z79.84 Long term (current) use of oral hypoglycemic drugs
CPT/HCPCS: 36415; 80048; 80076; 82962; 83735; 84484; 85025; 85610; 93005; 99284

== ENCOUNTER 2020-02-15 15:59 | Emergency (ER) | payer OTHER ==
--- OUTSIDE RECORDS SUMMARY | 2020-02-15 16:39 | XMS REPORT | Continuity of Care Document ---
:1970 Author Organization [facility] t Address [address] [place] [address] Care Team Providers Name Role Phone Mauricio Wilson DO Attending Clinician Problems Condition Condition Condition Status Onset Resolution Last Treating Co mments Source Name Details Category Date Date Treatment Clinician Date Diabetes Diabetes Problem Active 2018-08 [place] mellitus Mellitus [facility] Hyperlipid Hyperlipid Problem Active 2018- M [place] emia emia 19 da 00:00: [facility] Essential Essential Problem Active 2018-08 [place] hypertensi Hypertensi 1-19 da on on 00:00: [facility] Allergies, Adverse Reactions, Alerts This patient has no known allergies or adverse reactions. Social History Smoking Status Start Date Stop Date Source Never Smoker [facility] Medications Ordered Filled Start Stop Current Ordering Indication Dosage Frequency Signature Comments Components Source Medication Medication Date Date Medication? Clinician (SIG) Name Name atorvastati atorvastati No 1 Q1D atorvastat [place] 20 mg n 20 mg in 20 mg da tablet Take tablet Take tablet [facility] 1 tablet 1 tablet Take 1 al every day every day tablet Hea lth by oral by oral every day Outr eac route. route. by oral h route. Program Intrarosa Intrarosa No 1vagina Q1D Intr[place] 6.5 mg 6.5 mg l 6.5 mg da vaginal vaginal insert( vaginal Epi scop insert insert s) insert al Insert 1 Insert 1 Insert 1 Hea lth vaginal vaginal vaginal Outrea c insert insert insert h every day every day every day Program by vaginal by vaginal by vaginal route at route at route at bedtime. bedtime. bedtime. lisinopril lisinopril No 1 Q1D lisinopril [place] 20 mg 20 mg 20 mg da tablet Take tablet Take tablet [facility] 1 tablet 1 tablet Take 1 al every day every day tablet Hea lth by oral by oral every day Outr eac route. route. by oral h route. Program metformin metformin No 1 Q1D metformin [place] 500 mg 500 mg 500 mg da tablet Take tablet Take tablet [facility] 1 tablet 1 tablet Take 1 al every day every day tablet Hea lth by oral by oral every day Outr eac route. route. by oral h route. Program Ozempic Ozempic No 1mL Q1W Ozempic [place] r 0.25 mg or 0.25 mg or 0.25 mg or da 0.5 mg (2 0.5 mg (2 0.5 mg (2 [facility] mg/1.5 mL) mg/1.5 mL) mg/1.5 mL) al subcutaneou subcutaneou subcutaneo Health s pen s pen us pen Outreac injector injector injector h Inject 1 mL Inject 1 mL Inject 1 Program every week every week mL every by by week by subcutaneou subcutaneou subcutaneo s route. s route. us route. Vital Signs Vital Name Observation Time Observation Value Comments Source Height 2019-10-19 00:00:00 64 [in_i] [facility] BMI (Body Mass 2019-10-19 00:00:00 34.7 kg/m2 [place] [facility] Index) [facility] Body Weight 2019-10-19 00:00:00 202 [lb_av] [facility] BP Diastolic 2019-10-05 00:00:00 96 mm[Hg] [facility] Height 2019-10-05 00:00:00 64 [in_i] [facility] BMI (Body Mass 2019-10-05 00:00:00 35 kg/m2 [place] [facility] Index) [facility] BP Systolic 2019-10-05 00:00:00 158 mm[Hg] [place] [facility] Body Weight 2019-10-05 00:00:00 204 [lb_av] [place] [facility] BP Diastolic 2019-07-14 00:00:00 88 mm[Hg] [place] [facility] Height 2019-07-14 00:00:00 64 [in_i] [place] [facility] BMI (Body Mass 2019-07-14 00:00:00 35 kg/m2 [place] [facility] Index) [facility] BP Systolic 2019-07-14 00:00:00 154 mm[Hg] [place] [facility] Body Weight 2019-07-14 00:00:00 204 [lb_av] [place] [facility] Procedures Procedure Date / Time Performing Clinician Source Performed MAMMO, screening, digital, 2019-10-19 00:00:00 [place] [facility] unlisted imaging order 2019-10-05 00:00:00 [place] [facility] MAMMO, diagnostic, 2019-10-05 00:00:00 [place] [facility] digital, unilateral Health Outre [facility]ch Program Cholecystectomy 2014-08-26 00:00:00 [facility] Tubal Ligation 1994-09-26 00:00:00 [facility] Delivery [facility] Plan of Care Planned Activity Planned Date Details Comments Source Future Appointment 2020-07-14 00:00:00 Tabatha Lozano [facility] [address] , [place] Program [phone] Future Appointment 2020-04-18 08:30:[address] [facility] [address]; , [facility] [place] [address] Program Encounters Start End Encounter Admission Attending Care Care Encounter Source Date/Time Date/Time Type Type Clinicians Facility Department ID 2019-10-29 2019-10-29 Emergency Steve [facility] [id number] 21:55:48 22:20:00 Maryam Guzman [id number] [place] [id number] [place] [id number] 2019-10-19 2019-10-19 Suraj [place] - [id number] [place] 00:00:00 00:00:00 Benson Mead MD: [facility] [address], [place], [place] Outreac [id number] h , Ph. Program 2019-10-05 2019-10-05 Suraj CARNEY [place] - [id number] M [facility] 00:00:00 00:00:00 Benson Mead MD: [facility] [address], [place] Outre [phone] h , Ph. Program 2019-07-14 2019-07-14 Grace CARNEY [place] - [id number] M at[facility] 00:00:00 00:00:00 Preeti Vasquez, [facility] CONTACT CENTER DIRECTOR: [address], [facility], Outrea [facility] [address] Progr am , Ph. Results Test Description Test Time Test Comments Results Result Comments Source Pathology study 2019-10-09 00:00:00 Test Item Value Reference Range Interpretation Comme nts Pathology report site of origin Narrative (test code = 49791-5) com ment Pathology report final diagnosis Narrative (test code = 12618-0) co mment Pathologist name (test code = 82335-4) comment Pathology report gross observation Narrative (test code = 03240-4) comment Pathology report microscopic observation Narrative Other stain (alyce t comment code = 55932-0) Diagnosis ICD code (test code = 56826-6) comment Payment procedure (test code = 03501-2) comment [facility] ProgramPathology [id number] 00:00:00 Test Item Value Reference Range Interpretation Comments Pathology report site of origin comment Narrative (test code = 02177-0) Pathology report final diagnosis comment Narrative (test code = 39917-0) Pathologist name (test code = comment 07732-5) Pathology report gross observation comment Narrative (test code = 95814-8) Pathology report microscopic comment observation Narrative Other stain (test code = 63500-9) Diagnosis ICD code (test code = comment 83271-9) Payment procedure (test code = comment 15703-1) [facility]
--- NOTE | 2020-02-15 17:05 | ER ---
Nurse's Notes [facility] Name: Shonna Franco Age: 49 yrs Sex: Female : 1970 Arrival Date: 02/15/2020 Time: 16:00 Bed 26 Private MD: Diagnosis: Diabetes mellitus due to underlying condition with hyperglycemia Presentation: 02/14 16:12 Chief complaint: Patient states: I was at the doctor's office. They checked my sugar ca1 and it was >500 so they sent me here to the ER. BGL at triage 330. Coronavirus screen: Proceed with normal triage. Patient denies a cough. Patient denies shortness of breath or difficulty breathing. Patient denies measured and/or subjective temperature greater than 100.4F prior to today's visit. Patient denies travel on a cruise ship or to a country the [facility] currently lists as an affected area. Patient denies contact with known and/or suspected case of COVID-19. Ebola Screen: Patient negative for fever greater than or equal to 101.5 degrees Fahrenheit, and additional compatible Ebola Virus Disease symptoms Patient denies exposure to infectious person. Patient denies travel to an Ebola-affected area in the 21 days before illness onset. No symptoms or risks identified at this time. Initial Sepsis Screen: Does the patient meet any 2 criteria? No. Patient's initial sepsis screen is negative. Does the patient have a suspected source of infection? No. Patient's initial sepsis screen is negative. Risk Assessment: Do you want to hurt yourself or someone else? Patient reports no desire to harm self or others. Onset of symptoms was February 15, 2020. 16:12 Method Of Arrival: Ambulatory ca1 16:12 Acuity: MALCOM 3 ca1 Triage Assessment: 16:16 General: Appears in no apparent distress. comfortable, Behavior is calm, cooperative. ls4 16:16 Pain: Denies pain. 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 - Social history:: Smoking status: Patient denies any tobacco usage or history of. Screenin:16 Abuse screen: Denies threats or abuse. Denies injuries from another. Nutritional ls4 screening: No deficits noted. Tuberculosis screening: No symptoms or risk factors identified. Fall Risk None identified. Assessment: 17:08 Reassessment: Patient appears in no apparent distress at this time. Patient and/or ls4 family updated on plan of care and expected duration. Pain level reassessed. Patient is alert, oriented x 3, equal unlabored respirations, skin warm/dry/pink. PT STATES THAT SHE DOES NOT WANT LABS AND MORE TESTING. STATES SHE HAD LABS AT DR OFFICE TODAY. SHE STATES THAT HER GLUCOSE WAS HIGH BECAUSE SHE DRANK TWO SPRITES AND HASN'T TAKEN METFORMIN IN 2 WEEKS. PT GLUCOSE CHECKED AT THIS TIME AND IS 307. MATT GOODMAN NOTIFIED AND PT LEFT AMA AFTER RISKS REVIEWED WITH PATIENT. PT SIGNED AM FORM AND AMBULATED WITH NO DISTRESS AND STEADY TO EXIT INDEPENDENTLY. Vital Signs: 16:12 BP 137 / 92; Pulse 96; Resp 15 S; Temp 97.5(TE); Pulse Ox 94% on R/A; Weight 89.81 kg ca1 (R); Height 5 ft. 4 in. (162.56 cm) (R); Pain 0/10; 17:05 BP 128 / 88; Pulse 84; Resp 16; Temp 97.9(O); Pulse Ox 98% on R/A; Pain 0/10; ls4 16:12 Body Mass Index 33.99 (89.81 kg, 162.56 cm) ca1 ED Course: 16:00 Patient arrived in ED. ag5 16:14 Triage completed. ca1 16:15 Arm band placed on right wrist. ca1 16:16 Matt Mackey PA is PHCP. cp 16:16 Soco Rowland MD is Attending Physician. cp 16:16 Patient has correct armband on for positive identification. Bed in low position. Call ls4 light in reach. Side rails up X 1. Pulse ox on. NIBP on. 16:33 Monica Redding, RN is Primary Nurse. ls4 Administered Medications: No medications were administered Outcome: 17:14 Patient left the ED. ls4 Signatures: Page, MattMAXINE rothman cp, Lisa, RN RN ls4 Katarzyna Buitrago RN RN ca1 Harjeet Mustafa ag5 Corrections: (The following items were deleted from the chart) 17:13 17:12 Abuse screen: Denies threats or abuse. Denies injuries from another. ls4 ls4 17:13 17:12 Nutritional screening: No deficits noted. ls4 ls4 17: 17:12 Tuberculosis screening: No symptoms or risk factors identified. ls4 ls4 17:13 17:12 Fall Risk None identified. ls4 ls4
--- NOTE | 2020-02-15 17:05 | EDPHYS ---
Physician Documentation [facility] Name: Shonna Franco Age: 49 yrs Sex: Female : 1970 Arrival Date: 02/15/2020 Time: 16:00 Bed 26 Private MD: ED Physician Soco Rowland HPI: 02/14 16:30 This 49 yrs old Black Female presents to ER via Ambulatory with complaints of High cp Blood Sugar. 16:30 The patient or guardian reports hyperglycemia, that was potentially precipitated by not cp taking metformin as prescribed. 16:30 Associated signs and symptoms: Pertinent positives: None. 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 - Social history:: Smoking status: Patient denies any tobacco usage or history of. ROS: 16:35 Constitutional: Negative for body aches, chills, fever, poor PO intake. cp 16:35 Eyes: Negative for injury, pain, redness, and discharge. cp 16:35 Cardiovascular: Negative for chest pain, palpitations. 16:35 Respiratory: Negative for cough, shortness of breath, wheezing. 16:35 Neuro: Negative for altered mental status, headache, weakness. 16:35 Endocrine: Positive for hyperglycemia. 16:35 Abdomen/GI: Negative for abdominal pain, nausea, vomiting, and diarrhea, constipation. cp 16:35 All other systems are negative. Exam: 16:40 Constitutional: The patient appears in no acute distress, alert, awake, non-toxic, well cp developed, well nourished. 16:40 Head/Face: Normocephalic, atraumatic. cp 16:40 Eyes: Periorbital structures: appear normal, Conjunctiva: normal, no exudate, no cp injection, Sclera: no appreciated abnormality, Lids and lashes: appear normal, bilaterally. 16:40 ENT: External ear(s): are unremarkable, Nose: is normal, Mouth: Lips: moist, Oral mucosa: moist. 16:40 Chest/axilla: Inspection: normal. 16:40 Cardiovascular: Rate: normal, Rhythm: regular. 16:40 Respiratory: the patient does not display signs of respiratory distress, Respirations: normal, no use of accessory muscles, no retractions, labored breathing, is not present. 16:40 Abdomen/GI: Inspection: abdomen appears normal, Palpation: abdomen is soft and non-tender. 16:40 Skin: no rash present. 16:40 Neuro: Orientation: to person, place \T\ time. Mentation: is normal, Cerebellar function: is grossly normal, Motor: moves all fours, strength is normal, Sensation: is normal. Vital Signs: 16:12 BP 137 / 92; Pulse 96; Resp 15 S; Temp 97.5(TE); Pulse Ox 94% on R/A; Weight 89.81 kg ca1 (R); Height 5 ft. 4 in. (162.56 cm) (R); Pain 0/10; 17:05 BP 128 / 88; Pulse 84; Resp 16; Temp 97.9(O); Pulse Ox 98% on R/A; Pain 0/10; ls4 16:12 Body Mass Index 33.99 (89.81 kg, 162.56 cm) ca1 MDM: 16:20 Patient medically screened. 16:30 Differential diagnosis: diabetes insipidus, DKA, hyperglycemia, hyperthyroidism, cp hypothyroidism. 17:04 Data reviewed: vital signs, nurses notes, lab test result(s), Accu-Check . 02/14 16:24 Order name: Glucose, Ancillary Testing; Complete Time: 17:03 EDID 02/14 17:03 Interpretation: GLUC,ANCIL 330; Reviewed. 02/14 16:23 Order name: IV Saline Lock 02/14 16:23 Order name: Labs collected and sent 02/14 16:23 Order name: Urine Dipstick-Ancillary (obtain specimen) 02/14 16:23 Order name: Urine Test (obtain specimen) Administered Medications: No medications were administered Disposition: 18:58 Co-signature as Attending Physician, Soco Rowland MD. ma2 Disposition: 02/15/20 17:04 Patient has left against medical advice. Impression: Diabetes mellitus due to underlying condition with hyperglycemia. - Patients states they are going to Home. - Condition is Stable. - Discharge Instructions: Diabetes Mellitus and Food. Follow up: Private Physician; When: 1 - 2 days; Reason: Recheck today's complaints. - Problem is new. - Symptoms have improved. Signatures: Dispatcher [employer] EDMS Garcia Mackey PA PA cp Alzahri, Mohammad, MD MD ma2 Monica Redding RN RN ls4 Katarzyna Buitrago RN RN ca1 Corrections: (The following items were deleted from the chart) 17:14 17:04 02/15/2020 17:04 Patients has left against medical advice. Impression: Diabetes ls4 mellitus due to underlying condition with hyperglycemia. Patient states they are going to Home. Condition is Stable. Follow up: Private Physician; When: 1 - 2 days; Reason: Recheck today's complaints. Problem is new. Symptoms have improved. cp 02/15 13:36 02/14 16:25 Differential diagnosis: diabetes insipidus, DKA, hyperglycemia, cp hyperthyroidism, hypothyroidism, cp
[2020-02-15 17:41] VITALS: BP 128/88; TEMP 97.9; O2SAT 98
== END 2020-02-15 17:14 | disposition left against medical advice (07) ==
LOC: ER 15:59
DX: E11.65 Type 2 diabetes mellitus with hyperglycemia (principal); I10 Essential (primary) hypertension
CPT/HCPCS: 82947; 99283